=== PATIENT | female | born 1965 | race Caucasian/White ===

== ENCOUNTER 2017-12-21 23:34 | Inpatient (IN) | payer MEDICAID, OTHER ==
[~2017-12-21] VITALS: Ht 166.4 cm; Wt 108.1 kg
[~2017-12-21 23:34] MED LIST: ASCO500 PO; CALC1TAB97 PO; GABA-533 PO; MOME13HF2 IH; QUET200T29 PO; TOPI100T31 PO; TOPI100T37 PO
[2017-12-22 00:27] LABS: GLUCOSE,POINT OF CARE 145 MG/DL (70-110)
[2017-12-22 00:37] LABS: BASOPHILS % (AUTO) 0.7 % (0.0-2.0); EOSINOPHILS % (AUTO) 3.5 % (1.0-6.0); HEMATOCRIT 41.1 % (36-46); HEMOGLOBIN 13.7 g/dL (12.0-16.0); LYMPHOCYTES # (AUTO) 2.3 K/uL (1.0-4.8); LYMPHOCYTES % (AUTO) 27.1 % (22.0-44.0); MEAN CORPUSCULAR HEMOGLOBIN 29.5 pg (26.0-34.0); MEAN CORPUSCULAR HGB CONC 33.4 G/dL (31.0-37.0); MEAN CORPUSCULAR VOLUME 88 fL (80-100); MONOCYTES # (AUTO) 0.7 K/uL (0.1-1.0); MONOCYTES % (AUTO) 8.5 % (2.0-9.0); NEUTROPHILS # (AUTO) 5.2 K/uL (1.8-7.7); NEUTROPHILS % (AUTO) 60.2 % (40.0-70.0); PLATELET COUNT (AUTO) 287 K/uL (150-450); RED BLOOD CELL COUNT(AUTO) 4.66 MIL/uL (4.00-5.20); RED CELL DISTRIBUTION WIDTH 14.3 % (11.5-14.5)
[2017-12-22 00:53] LABS: ANION GAP 13 mmol/L (8-16); CALCIUM, TOTAL 9.1 mg/dL (8.8-10.5); CARBON DIOXIDE 23 mmol/L (22-29); CHLORIDE 103 mmol/L (98-107); GLOMERULAR FILTR. RATE CALC > 60 mL/min (>60); GLUCOSE,RANDOM 153 mg/dL (70-110); POTASSIUM 3.4 mmol/L (3.5-5.1); SODIUM SERUM 139 mmol/L (136-145); UREA NITROGEN, BLOOD 19 mg/dL (7-18)
[2017-12-22 00:58] LABS: ALANINE AMINOTRANSFERASE 40 U/L (12-78); ALBUMIN 3.9 g/dL (3.4-5.0); ALKALINE PHOSPHATASE 101 U/L (46-116); ASPARTATE AMINOTRANSFERASE 16 U/L (15-37); BILIRUBIN,TOTAL 0.2 mg/dL (0.1-1.0); TOTAL PROTEIN, SERUM 7.9 g/dL (6.4-8.2)
[2017-12-22 01:06] LABS: AMPHET/METH SCREEN,URINE NEGATIVE (NEGATIVE); BARBITURATE SCREEN, URINE NEGATIVE (NEGATIVE); BENZODIAZEPINES SCREEN,URINE NEGATIVE (NEGATIVE); CANNABINOID SCREEN,URINE NEGATIVE (NEGATIVE); COCAINE SCREEN,URINE NEGATIVE (NEGATIVE); METHADONE SCREEN, URINE NEGATIVE (NEGATIVE); OPIATE SCREEN,URINE NEGATIVE (NEGATIVE)
[2017-12-22 01:07] LABS: PHENCYCLIDINE SCREEN,URINE NEGATIVE (NEGATIVE)
[2017-12-22 01:15] LABS: APPEARANCE,URINE CLEAR (CLEAR); BILIRUBIN,URINE NEGATIVE (NEGATIVE); GLUCOSE, URINE (UA) NEGATIVE (NEGATIVE); KETONES,URINE NEGATIVE (NEGATIVE); LEUKOCYTE ESTERASE ,URINE NEGATIVE (NEGATIVE); NITRATE,URINE NEGATIVE (NEGATIVE); OCCULT BLOOD,URINE NEGATIVE (NEGATIVE); PROTEIN,URINE NEGATIVE (NEGATIVE); UROBILINOGEN,URINE 0.2 mg/dL (<=1.0)
[2017-12-22] MEDS ORDERED: LORazepam 2 MG TABLET PO PRN (01:15)
[2017-12-22] MEDS ORDERED: ZOLPIDEM TARTRATE 10 MG TABLET PO PRN (01:15)
[2017-12-22 03:20] VITALS: BP 143/96
[2017-12-22] MEDS ORDERED: POTASSIUM CHLORIDE 20 MEQ ER TABLET PO ONE (10:15)
[2017-12-22 10:26] VITALS: BP 120/66
[2017-12-22] MEDS ORDERED: ACETAMINOPHEN 325 MG TABLET PO PRN (16:15)
[2017-12-22] MEDS: ASCORBIC ACID 500 MG TABLET PO SCH (16:56)
[2017-12-22] MEDS: CALCIUM OYSTER SHELL 250 MG-VIT D3 125 UNITS TABLET PO SCH (16:57)
[2017-12-22] MEDS ORDERED: [UNRECOGNIZED DRUG - OTHER] IH SCH (17:00)
[2017-12-22 17:06] VITALS: BP 135/82
[2017-12-23 05:30] VITALS: BP 129/76
[2017-12-23 07:23] LABS: POTASSIUM 3.7 mmol/L (3.5-5.1); THYROID STIMULATING HORMONE 2.76 uIU/mL (0.36-3.74)
[2017-12-23] MEDS: QUEtiapine FUMARATE 100 MG TABLET PO SCH ×3 (08:03→21:00)
[2017-12-23] MEDS: CALCIUM OYSTER SHELL 250 MG-VIT D3 125 UNITS TABLET PO SCH ×2 (08:03→16:48)
[2017-12-23] MEDS: GABAPENTIN 300 MG CAPSULE PO SCH ×2 (08:03→16:48)
[2017-12-23] MEDS: ASCORBIC ACID 500 MG TABLET PO SCH ×2 (08:03→16:48)
[2017-12-23] MEDS: TOPIRAMATE 25 MG TABLET PO SCH ×2 (08:03→16:48)
[2017-12-23] MEDS: OLANZapine 5 MG RAPDIS TABLET PO PRN (08:03)
[2017-12-23 09:39] VITALS: BP 116/65
[2017-12-23 17:05] VITALS: BP 124/85
[2017-12-23] MEDS ORDERED: LORazepam 2 MG/ML VIAL IM ONE (19:20)
[2017-12-23] MEDS ORDERED: LORazepam 2 MG/ML VIAL IM PRN (19:30)
[2017-12-23 19:32] LABS: GLUCOMETER DEV NAME(LOC) 3EC; GLUCOSE,POINT OF CARE 173 MG/DL (70-110)
[2017-12-23 20:02] LABS: BASOPHILS % (AUTO) 0.5 % (0.0-2.0); EOSINOPHILS % (AUTO) 3.2 % (1.0-6.0); HEMATOCRIT 44.8 % (36-46); LYMPHOCYTES # (AUTO) 2.6 K/uL (1.0-4.8); LYMPHOCYTES % (AUTO) 24.8 % (22.0-44.0); MEAN CORPUSCULAR HEMOGLOBIN 29.2 pg (26.0-34.0); MEAN CORPUSCULAR HGB CONC 33.4 G/dL (31.0-37.0); MEAN CORPUSCULAR VOLUME 88 fL (80-100); MONOCYTES # (AUTO) 1.1 K/uL (0.1-1.0); MONOCYTES % (AUTO) 10.5 % (2.0-9.0); NEUTROPHILS # (AUTO) 6.5 K/uL (1.8-7.7); PLATELET COUNT (AUTO) 352 K/uL (150-450); RED BLOOD CELL COUNT(AUTO) 5.12 MIL/uL (4.00-5.20); RED CELL DISTRIBUTION WIDTH 14.2 % (11.5-14.5)
[2017-12-23 20:12] LABS: ANION GAP 11 mmol/L (8-16); CALCIUM, TOTAL 9.9 mg/dL (8.8-10.5); CARBON DIOXIDE 26 mmol/L (22-29); CHLORIDE 102 mmol/L (98-107); CREATININE 0.84 mg/dL (0.60-1.30); GLOMERULAR FILTR. RATE CALC > 60 mL/min (>60); GLUCOSE,RANDOM 158 mg/dL (70-110); POTASSIUM 3.9 mmol/L (3.5-5.1); SODIUM SERUM 139 mmol/L (136-145); UREA NITROGEN, BLOOD 22 mg/dL (7-18)
[2017-12-24 03:05] VITALS: BP 128/68
[2017-12-24 08:00] VITALS: BP 106/77
[2017-12-24] MEDS: ASCORBIC ACID 500 MG TABLET PO SCH ×2 (08:46→16:18)
[2017-12-24] MEDS: TOPIRAMATE 25 MG TABLET PO SCH ×2 (08:46→16:18)
[2017-12-24] MEDS: GABAPENTIN 300 MG CAPSULE PO SCH ×2 (08:46→16:18)
[2017-12-24] MEDS: CALCIUM OYSTER SHELL 250 MG-VIT D3 125 UNITS TABLET PO SCH ×2 (08:46→16:18)
[2017-12-24] MEDS: LevETIRAcetam 500 MG TABLET PO SCH ×2 (08:47→16:18)
[2017-12-24] MEDS: QUEtiapine FUMARATE 100 MG TABLET PO SCH ×3 (08:47→21:15)
[2017-12-24 16:05] VITALS: BP 117/78
[2017-12-25] MEDS: LevETIRAcetam 500 MG TABLET PO SCH ×2 (09:14→16:00)
[2017-12-25] MEDS: ASCORBIC ACID 500 MG TABLET PO SCH ×2 (09:14→16:01)
[2017-12-25] MEDS: QUEtiapine FUMARATE 100 MG TABLET PO SCH ×3 (09:14→20:21)
[2017-12-25] MEDS: GABAPENTIN 300 MG CAPSULE PO SCH ×2 (09:14→16:00)
[2017-12-25] MEDS: TOPIRAMATE 25 MG TABLET PO SCH ×2 (09:14→16:01)
[2017-12-25] MEDS: CALCIUM OYSTER SHELL 250 MG-VIT D3 125 UNITS TABLET PO SCH ×2 (09:16→16:01)
[2017-12-25 09:56] VITALS: BP 118/56
[2017-12-25 16:10] VITALS: BP 132/69
[2017-12-26 09:02] VITALS: BP 141/82
[2017-12-26] MEDS: GABAPENTIN 300 MG CAPSULE PO SCH ×2 (09:48→16:06)
[2017-12-26] MEDS: ASCORBIC ACID 500 MG TABLET PO SCH ×2 (09:48→16:05)
[2017-12-26] MEDS: CALCIUM OYSTER SHELL 250 MG-VIT D3 125 UNITS TABLET PO SCH ×2 (09:48→16:06)
[2017-12-26] MEDS: QUEtiapine FUMARATE 100 MG TABLET PO SCH ×2 (09:48→16:06)
[2017-12-26] MEDS: HydrOXYzine PAMOATE 50 MG CAPSULE PO PRN (09:48)
[2017-12-26] MEDS: TOPIRAMATE 25 MG TABLET PO SCH ×2 (09:48→16:06)
[2017-12-26] MEDS: LevETIRAcetam 500 MG TABLET PO SCH ×2 (09:50→16:06)
[2017-12-26 16:33] VITALS: BP 133/78
[2017-12-26] MEDS ORDERED: QUEtiapine FUMARATE 200 MG TABLET PO SCH (21:00)
[2017-12-27] MEDS: GABAPENTIN 300 MG CAPSULE PO SCH (07:48)
[2017-12-27] MEDS: LevETIRAcetam 500 MG TABLET PO SCH (07:48)
[2017-12-27] MEDS: TOPIRAMATE 25 MG TABLET PO SCH (07:48)
[2017-12-27] MEDS: ASCORBIC ACID 500 MG TABLET PO SCH (07:48)
[2017-12-27] MEDS: CALCIUM OYSTER SHELL 250 MG-VIT D3 125 UNITS TABLET PO SCH (07:48)
[2017-12-27] MEDS: HydrOXYzine PAMOATE 50 MG CAPSULE PO PRN (07:50)
[2017-12-27] MEDS: OLANZapine 5 MG RAPDIS TABLET PO PRN (07:50)
[2017-12-27 08:40] VITALS: BP 134/84
[2017-12-27] MEDS ORDERED: QUEtiapine FUMARATE 100 MG TABLET PO SCH (09:00)
[2017-12-27] MEDS ORDERED: GABA-531 PO (11:19)
[2017-12-27] MEDS ORDERED: TOPI25 PO (11:19)
[2017-12-27] MEDS ORDERED: LEVE500T53 PO (11:19)
[2017-12-27] MEDS ORDERED: QUET100T PO ×2 (11:19)
[2017-12-27] MEDS ORDERED: OSCD250 PO (11:21)
== END 2017-12-27 14:00 | disposition home or self-care (01) | DRG 750 ==
LOC: EMS 23:35 → 3EC 12-22 01:30
PROVIDERS: ADMIT Psychiatry & Neurology Psychiatry; ATTEND Psychiatry & Neurology Psychiatry
DX: F25.0 Schizoaffective disorder, bipolar type (principal); F72 Severe intellectual disabilities; R45.851 Suicidal ideations; E11.9 Type 2 diabetes mellitus without complications; I10 Essential (primary) hypertension; E55.9 Vitamin D deficiency, unspecified; D64.9 Anemia, unspecified; G40.909 Epilepsy, unspecified, not intractable, without status epilepticus; E78.5 Hyperlipidemia, unspecified; K21.9 Gastro-esophageal reflux disease without esophagitis; J44.9 Chronic obstructive pulmonary disease, unspecified; E87.6 Hypokalemia; Z56.0 Unemployment, unspecified; E66.9 Obesity, unspecified; Z91.14 Patient's other noncompliance with medication regimen; Z79.899 Other long term (current) drug therapy; Z88.0 Allergy status to penicillin; Z88.8 Allergy status to other drugs, medicaments and biological substances; Z88.6 Allergy status to analgesic agent; Z91.040 Latex allergy status; Z68.39 Body mass index [BMI] 39.0-39.9, adult
CPT/HCPCS: 82962; 84132; 84443; 87081; 99285; G0480; J2060

== ENCOUNTER 2018-01-26 17:12 | Emergency (ER) | payer MEDICAID, OTHER ==
[~2018-01-26] VITALS: Ht 157.5 cm; Wt 140.0 kg
[~2018-01-26 17:12] MED LIST changes: -CALC1TAB97 PO; +DIVA500T35 PO; +GABA-531 PO; -GABA-533 PO; +LEVE500T53 PO; -MOME13HF2 IH; +OSCD250 PO; +QUET100T PO; -QUET200T29 PO; -TOPI100T31 PO; -TOPI100T37 PO; +TOPI25 PO; +ZIPR40CA2 PO
[2018-01-26 17:32] VITALS: BP 130/57
[2018-01-26 17:37] LABS: GLUCOSE,POINT OF CARE 145 MG/DL (70-110)
[2018-01-26] MEDS ORDERED: LORA1TAB3 PO (17:41)
[2018-01-26] MEDS ORDERED: LIB25 PO (17:41)
== END 2018-01-26 20:21 | disposition home or self-care (01) ==
LOC: EMS 17:13
DX: S32.010A Wedge compression fracture of first lumbar vertebra, initial encounter for closed fracture (principal); S22.010A Wedge compression fracture of first thoracic vertebra, initial encounter for closed fracture; E11.9 Type 2 diabetes mellitus without complications; F17.200 Nicotine dependence, unspecified, uncomplicated; Z88.5 Allergy status to narcotic agent; Z88.0 Allergy status to penicillin; Z88.8 Allergy status to other drugs, medicaments and biological substances; Z88.1 Allergy status to other antibiotic agents; Z91.040 Latex allergy status; W19.XXXA Unspecified fall, initial encounter; Y93.89 Activity, other specified; Y92.89 Other specified places as the place of occurrence of the external cause; Y99.8 Other external cause status
CPT/HCPCS: 70450; 72100; 99284

== ENCOUNTER 2018-02-05 16:02 | Inpatient (IN) | payer MEDICAID, OTHER ==
[~2018-02-05] VITALS: Ht 160 cm; Wt 113.6 kg
[~2018-02-05 16:02] MED LIST changes: -ASCO500 PO; -DIVA500T35 PO; +LIB25 PO; +LORA1TAB3 PO
[2018-02-05 16:52] LABS: EOSINOPHILS % (AUTO) 4.9 % (1.0-6.0); HEMATOCRIT 41.4 % (36-46); HEMOGLOBIN 13.9 g/dL (12.0-16.0); LYMPHOCYTES # (AUTO) 2.1 K/uL (1.0-4.8); LYMPHOCYTES % (AUTO) 20.4 % (22.0-44.0); MEAN CORPUSCULAR HEMOGLOBIN 29.4 pg (26.0-34.0); MEAN CORPUSCULAR HGB CONC 33.6 G/dL (31.0-37.0); MEAN CORPUSCULAR VOLUME 88 fL (80-100); MONOCYTES # (AUTO) 0.7 K/uL (0.1-1.0); MONOCYTES % (AUTO) 6.5 % (2.0-9.0); NEUTROPHILS % (AUTO) 67.2 % (40.0-70.0); PLATELET COUNT (AUTO) 319 K/uL (150-450); RED BLOOD CELL COUNT(AUTO) 4.74 MIL/uL (4.00-5.20); RED CELL DISTRIBUTION WIDTH 13.9 % (11.5-14.5)
[2018-02-05 17:08] LABS: ANION GAP 9 mmol/L (8-16); CALCIUM, TOTAL 8.9 mg/dL (8.8-10.5); CARBON DIOXIDE 26 mmol/L (22-29); CHLORIDE 103 mmol/L (98-107); CREATININE 0.99 mg/dL (0.60-1.30); GLOMERULAR FILTR. RATE CALC 58 mL/min (>60); GLUCOSE,RANDOM 179 mg/dL (70-110); POTASSIUM 3.7 mmol/L (3.5-5.1); SODIUM SERUM 138 mmol/L (136-145); UREA NITROGEN, BLOOD 24 mg/dL (7-18)
[2018-02-05 17:14] LABS: ALANINE AMINOTRANSFERASE 50 U/L (12-78); ALBUMIN 3.6 g/dL (3.4-5.0); ALKALINE PHOSPHATASE 108 U/L (46-116); ASPARTATE AMINOTRANSFERASE 22 U/L (15-37); BILIRUBIN,TOTAL 0.1 mg/dL (0.1-1.0); TOTAL PROTEIN, SERUM 7.6 g/dL (6.4-8.2)
[2018-02-05 18:43] LABS: AMPHET/METH SCREEN,URINE NEGATIVE (NEGATIVE); BARBITURATE SCREEN, URINE NEGATIVE (NEGATIVE); BENZODIAZEPINES SCREEN,URINE NEGATIVE (NEGATIVE); CANNABINOID SCREEN,URINE NEGATIVE (NEGATIVE); COCAINE SCREEN,URINE NEGATIVE (NEGATIVE); METHADONE SCREEN, URINE NEGATIVE (NEGATIVE); OPIATE SCREEN,URINE NEGATIVE (NEGATIVE); PHENCYCLIDINE SCREEN,URINE NEGATIVE (NEGATIVE)
[2018-02-05] MEDS ORDERED: DiphenhydrAMINE HCL 50 MG/ML VIAL IM ONE (19:45)
[2018-02-05] MEDS ORDERED: LORazepam 2 MG/ML VIAL IM ONE (19:45)
[2018-02-05] MEDS ORDERED: HALOPERIDOL LACTATE 5 MG/ML VIAL IM ONE (19:45)
[2018-02-05] MEDS ORDERED: QUEtiapine FUMARATE 100 MG TABLET PO PRN (20:00)
[2018-02-06] MEDS ORDERED: PNEUMOCOCCAL VACCINE POLYVALENT 0.5 ML VIAL [PPSV23] IM ONE (01:45)
[2018-02-06] MEDS ORDERED: DEXTROSE 50%-WATER 25 GM/50 ML SYRINGE IVP PRN (06:15)
[2018-02-06 07:12] LABS: GLUCOMETER DEV NAME(LOC) 3EX 1; GLUCOSE,POINT OF CARE 132 MG/DL (70-110)
[2018-02-06] MEDS: TOPIRAMATE 25 MG TABLET PO SCH ×2 (09:17→16:49)
[2018-02-06] MEDS: LevETIRAcetam 500 MG TABLET PO SCH ×2 (09:17→16:50)
[2018-02-06 11:38] LABS: GLUCOMETER DEV NAME(LOC) 3EX 1; GLUCOSE,POINT OF CARE 110 MG/DL (70-110)
[2018-02-06 16:53] LABS: GLUCOMETER DEV NAME(LOC) 3EX 1; GLUCOSE,POINT OF CARE 150 MG/DL (70-110)
[2018-02-06] MEDS: INSULIN LISPRO 100 UNITS/ML SQ PRN (17:30)
[2018-02-06] MEDS ORDERED: LORazepam 2 MG/ML VIAL IM ONE (18:05)
[2018-02-06 18:08] LABS: GLUCOMETER DEV NAME(LOC) 3EX 1; GLUCOSE,POINT OF CARE 178 MG/DL (70-110)
[2018-02-06 18:48] LABS: BASOPHILS % (AUTO) 1.4 % (0.0-2.0); EOSINOPHILS % (AUTO) 4.8 % (1.0-6.0); HEMOGLOBIN 14.6 g/dL (12.0-16.0); LYMPHOCYTES # (AUTO) 2.5 K/uL (1.0-4.8); LYMPHOCYTES % (AUTO) 26.4 % (22.0-44.0); MEAN CORPUSCULAR HEMOGLOBIN 29.4 pg (26.0-34.0); MEAN CORPUSCULAR HGB CONC 33.9 G/dL (31.0-37.0); MEAN CORPUSCULAR VOLUME 87 fL (80-100); MONOCYTES # (AUTO) 0.6 K/uL (0.1-1.0); MONOCYTES % (AUTO) 6.5 % (2.0-9.0); NEUTROPHILS # (AUTO) 5.7 K/uL (1.8-7.7); NEUTROPHILS % (AUTO) 60.9 % (40.0-70.0); PLATELET COUNT (AUTO) 353 K/uL (150-450); RED BLOOD CELL COUNT(AUTO) 4.95 MIL/uL (4.00-5.20); RED CELL DISTRIBUTION WIDTH 14.1 % (11.5-14.5)
[2018-02-06 18:56] VITALS: BP 106/68
[2018-02-06 18:58] LABS: ANION GAP 8 mmol/L (8-16); CALCIUM, TOTAL 8.5 mg/dL (8.8-10.5); CARBON DIOXIDE 26 mmol/L (22-29); CHLORIDE 104 mmol/L (98-107); GLOMERULAR FILTR. RATE CALC > 60 mL/min (>60); GLUCOSE,RANDOM 184 mg/dL (70-110); POTASSIUM 3.6 mmol/L (3.5-5.1); SODIUM SERUM 138 mmol/L (136-145); UREA NITROGEN, BLOOD 16 mg/dL (7-18)
[2018-02-06 19:04] LABS: ALANINE AMINOTRANSFERASE 52 U/L (12-78); ALBUMIN 3.7 g/dL (3.4-5.0); ALKALINE PHOSPHATASE 111 U/L (46-116); ASPARTATE AMINOTRANSFERASE 25 U/L (15-37); BILIRUBIN,TOTAL 0.3 mg/dL (0.1-1.0); TOTAL PROTEIN, SERUM 7.8 g/dL (6.4-8.2)
[2018-02-06 19:06] LABS: LACTIC ACID 1.5 mmol/L (0.4-2.0)
[2018-02-06 22:03] LABS: GLUCOMETER DEV NAME(LOC) 3EX 1; GLUCOSE,POINT OF CARE 114 MG/DL (70-110)
[2018-02-06] MEDS: ZOLPIDEM TARTRATE 10 MG TABLET PO PRN (22:51)
[2018-02-07 01:52] VITALS: BP 101/75
[2018-02-07] MEDS: LORazepam 2 MG TABLET PO PRN ×2 (02:04→23:13)
[2018-02-07 05:43] LABS: GLUCOMETER DEV NAME(LOC) 3EX 1; GLUCOSE,POINT OF CARE 137 MG/DL (70-110)
[2018-02-07] MEDS: TOPIRAMATE 25 MG TABLET PO SCH ×2 (09:50→17:40)
[2018-02-07] MEDS: LevETIRAcetam 500 MG TABLET PO SCH ×2 (09:50→17:41)
[2018-02-07 10:14] VITALS: BP 110/75
[2018-02-07 12:03] LABS: GLUCOMETER DEV NAME(LOC) 3EX 1; GLUCOSE,POINT OF CARE 113 MG/DL (70-110)
[2018-02-07] MEDS ORDERED: LORazepam 2 MG/ML VIAL IM ONE (12:30)
[2018-02-07] MEDS ORDERED: DiphenhydrAMINE HCL 50 MG/ML VIAL IM ONE (12:30)
[2018-02-07] MEDS ORDERED: HALOPERIDOL LACTATE 5 MG/ML VIAL IM ONE (12:30)
[2018-02-07 16:17] VITALS: BP 121/78
[2018-02-07 17:33] LABS: GLUCOMETER DEV NAME(LOC) 3EX 1; GLUCOSE,POINT OF CARE 123 MG/DL (70-110)
[2018-02-07 21:43] LABS: GLUCOMETER DEV NAME(LOC) 3EX 1; GLUCOSE,POINT OF CARE 135 MG/DL (70-110)
[2018-02-07] MEDS: ZOLPIDEM TARTRATE 10 MG TABLET PO PRN (23:13)
[2018-02-08 06:28] LABS: GLUCOMETER DEV NAME(LOC) 3EX 1; GLUCOSE,POINT OF CARE 128 MG/DL (70-110)
[2018-02-08] MEDS: INSULIN LISPRO 100 UNITS/ML SQ PRN (07:00)
[2018-02-08 08:55] VITALS: BP 150/72
[2018-02-08] MEDS: TOPIRAMATE 25 MG TABLET PO SCH (09:59)
[2018-02-08] MEDS: LevETIRAcetam 500 MG TABLET PO SCH (09:59)
[2018-02-08 11:27] LABS: GLUCOMETER DEV NAME(LOC) 3EX 1; GLUCOSE,POINT OF CARE 106 MG/DL (70-110)
== END 2018-02-08 14:36 | disposition home or self-care (01) | DRG 750 ==
LOC: EMS 16:05 → 3EI 02-06 00:17
PROVIDERS: ADMIT Psychiatry & Neurology Psychiatry; ATTEND Psychiatry & Neurology Psychiatry
DX: F25.0 Schizoaffective disorder, bipolar type (principal); E11.65 Type 2 diabetes mellitus with hyperglycemia; R45.851 Suicidal ideations; E55.9 Vitamin D deficiency, unspecified; E78.5 Hyperlipidemia, unspecified; G40.909 Epilepsy, unspecified, not intractable, without status epilepticus; J44.9 Chronic obstructive pulmonary disease, unspecified; K21.9 Gastro-esophageal reflux disease without esophagitis; Z88.0 Allergy status to penicillin; Z88.5 Allergy status to narcotic agent; Z91.041 Radiographic dye allergy status; Z91.040 Latex allergy status; Z88.8 Allergy status to other drugs, medicaments and biological substances; Z91.011 Allergy to milk products; Z79.899 Other long term (current) drug therapy
CPT/HCPCS: 83605; 87081; 96372; 99285; G0480; J1200; J1630; J2060

== ENCOUNTER 2021-05-23 17:19 | Inpatient (IN) | payer MEDICAID, OTHER ==
[~2021-05-23] VITALS: Ht 165.1 cm; Wt 95.5 kg
[~2021-05-23 17:19] MED LIST changes: -GABA-531 PO; -LIB25 PO; -LORA1TAB3 PO; -OSCD250 PO; -QUET100T PO; -ZIPR40CA2 PO
[2021-05-23 19:46] LABS: BASOPHILS % (AUTO) 1.2 % (0.0-2.0); EOSINOPHILS % (AUTO) 5.2 % (1.0-6.0); HEMATOCRIT 41.5 % (36-46); HEMOGLOBIN 13.3 g/dL (12.0-16.0); LYMPHOCYTES # (AUTO) 2.7 K/uL (1.0-4.8); MEAN CORPUSCULAR HEMOGLOBIN 28.8 pg (26.0-34.0); MEAN CORPUSCULAR HGB CONC 32.1 G/dL (31.0-37.0); MEAN CORPUSCULAR VOLUME 90 fL (80-100); MONOCYTES # (AUTO) 0.8 K/uL (0.1-1.0); MONOCYTES % (AUTO) 7.5 % (2.0-9.0); NEUTROPHILS # (AUTO) 5.9 K/uL (1.8-7.7); NEUTROPHILS % (AUTO) 59.1 % (40.0-70.0); PLATELET COUNT (AUTO) 342 K/uL (150-450); RED BLOOD CELL COUNT(AUTO) 4.64 MIL/uL (4.00-5.20); RED CELL DISTRIBUTION WIDTH 13.8 % (11.5-14.5)
[2021-05-23 19:56] LABS: ANION GAP 11 mmol/L (8-16); CALCIUM, TOTAL 9.2 mg/dL (8.8-10.5); CARBON DIOXIDE 22 mmol/L (22-29); CHLORIDE 104 mmol/L (98-107); CREATININE 0.94 mg/dL (0.60-1.30); GLOMERULAR FILTR. RATE CALC > 60 mL/min (>60); GLUCOSE,RANDOM 113 mg/dL (70-110); POTASSIUM 3.7 mmol/L (3.5-5.1); SODIUM SERUM 137 mmol/L (136-145); UREA NITROGEN, BLOOD 15 mg/dL (7-18)
[2021-05-23 20:01] LABS: ALANINE AMINOTRANSFERASE 39 U/L (12-78); ALBUMIN 3.9 g/dL (3.4-5.0); ALKALINE PHOSPHATASE 74 U/L (46-116); ASPARTATE AMINOTRANSFERASE 20 U/L (15-37); BILIRUBIN,TOTAL 0.2 mg/dL (0.1-1.0); TOTAL PROTEIN, SERUM 7.8 g/dL (6.4-8.2)
[2021-05-23 20:24] LABS: GLUCOSE,POINT OF CARE 129 MG/DL (70-110)
[2021-05-23] MEDS ORDERED: ACETAMINOPHEN 500 MG TABLET PO ONE (20:45)
[2021-05-23] MEDS ORDERED: LORazepam 1 MG TABLET PO ONE (21:30)
[2021-05-23] MEDS ORDERED: OLANZapine 5 MG RAPDIS TABLET PO PRN (21:30)
[2021-05-23] MEDS ORDERED: OLANZapine 5 MG RAPDIS TABLET PO ONE (21:30)
[2021-05-23] MEDS ORDERED: ZOLPIDEM TARTRATE 10 MG TABLET PO PRN (21:30)
[2021-05-23] MEDS ORDERED: LORazepam 2 MG TABLET PO PRN (21:30)
[2021-05-23 21:38] LABS: AMPHET/METH SCREEN,URINE NEGATIVE (NEGATIVE); BARBITURATE SCREEN, URINE NEGATIVE (NEGATIVE); BENZODIAZEPINES SCREEN,URINE NEGATIVE (NEGATIVE); CANNABINOID SCREEN,URINE NEGATIVE (NEGATIVE); COCAINE SCREEN,URINE NEGATIVE (NEGATIVE); METHADONE SCREEN, URINE NEGATIVE (NEGATIVE); OPIATE SCREEN,URINE NEGATIVE (NEGATIVE); PHENCYCLIDINE SCREEN,URINE NEGATIVE (NEGATIVE)
[2021-05-23 22:15] LABS: COVID AG,FIA SOURCE NASOPHARYNGEAL
[2021-05-24 00:25] VITALS: BP 108/69
[2021-05-24 06:05] LABS: CHOL/HDL RATIO 3.4 (3.9-5.7)
[2021-05-24] MEDS ORDERED: DOCUSATE SODIUM 100 MG CAPSULE PO PRN (07:45)
[2021-05-24] MEDS ORDERED: BACITRACIN 28 GM OINTMENT TP PRN (07:45)
[2021-05-24] MEDS ORDERED: OMEPRAZOLE 20 MG CAPSULE PO PRN (07:45)
[2021-05-24] MEDS ORDERED: CloNIDine HCL 0.1 MG TABLET PO PRN (07:45)
[2021-05-24] MEDS ORDERED: BENZOCAINE/MENTHOL LOZENGE PO PRN (07:45)
[2021-05-24] MEDS ORDERED: MAG HYDROX/AL HYDROX/SIMETH ES 30 ML SUSPENSION UDCUP PO PRN ×2 (07:45→15:00)
[2021-05-24] MEDS ORDERED: MAGNESIUM HYDROXIDE SUSPENSION 30 ML UDCUP PO PRN ×2 (07:45→15:00)
[2021-05-24] MEDS ORDERED: ACETAMINOPHEN 325 MG TABLET PO PRN (07:45)
[2021-05-24] MEDS ORDERED: PETROLATUM,WHITE 28 GM JELLY TP PRN (07:45)
[2021-05-24] MEDS ORDERED: ALBUTEROL SULFATE HFA 90 MCG/PUFF 8 GM INHALER IH PRN (07:45)
[2021-05-24 08:15] VITALS: BP 128/76
[2021-05-24] MEDS: LevETIRAcetam 500 MG TABLET PO SCH ×2 (10:48→17:37)
[2021-05-24] MEDS: TOPIRAMATE 25 MG TABLET PO SCH ×2 (10:48→17:36)
[2021-05-24] MEDS ORDERED: PROMETHAZINE HCL 25 MG TABLET PO PRN (15:00)
[2021-05-24] MEDS ORDERED: GuaiFENesin/D-METHORPHAN [SUGAR-FREE] 200-20MG/10 ML SYRUP UDCUP PO PRN (15:00)
[2021-05-24] MEDS ORDERED: HydrOXYzine PAMOATE 50 MG CAPSULE PO PRN (15:00)
[2021-05-24] MEDS ORDERED: LOPERAMIDE HCL 2 MG CAPSULE PO PRN (15:00)
[2021-05-24] MEDS ORDERED: TUBERCULIN, PURIFIED PROTEIN DERIVATIVE 5 TU/0.1 ML SYRINGE ID ONE (15:00)
[2021-05-24] MEDS ORDERED: DIAZEPAM 10 MG TABLET PO PRN (15:45)
[2021-05-24 16:23] VITALS: BP 135/70
[2021-05-24] MEDS: THIAMINE 100 MG TABLET PO SCH (17:37)
[2021-05-24] MEDS ORDERED: OLANZapine 5 MG RAPDIS TABLET PO SCH (21:00)
[2021-05-24] MEDS: DIVALPROEX SODIUM 500 MG ER TABLET PO SCH (21:06)
[2021-05-24] MEDS: MELATONIN 5 MG TABLET PO SCH (21:06)
[2021-05-25 02:35] VITALS: BP 101/60
[2021-05-25] MEDS: ACETAMINOPHEN 325 MG TABLET PO PRN (02:49)
[2021-05-25 07:20] LABS: CHOL/HDL RATIO 3.8 (3.9-5.7)
[2021-05-25 07:25] LABS: HEMOGLOBIN A1C 6.2 % (3.8-5.6)
[2021-05-25 08:01] LABS: FREE T4 (FREE THYROXINE) 1.06 ng/dL (0.76-1.46); THYROID STIMULATING HORMONE 1.25 uIU/mL (0.36-3.74)
[2021-05-25 08:32] VITALS: BP 115/75
[2021-05-25] MEDS ORDERED: DULoxetine HCL 20 MG CAPSULE PO SCH (09:00)
[2021-05-25] MEDS: NALTREXONE HCL 50 MG TABLET PO SCH (09:11)
[2021-05-25] MEDS: OMEGA-3/DHA/EPA/FISH OIL 1,000 MG CAPSULE PO SCH (09:12)
[2021-05-25] MEDS: MULTIVITAMINS WITH MINERALS, THERAPEUTIC TABLET PO SCH (09:12)
[2021-05-25] MEDS: LevETIRAcetam 500 MG TABLET PO SCH ×2 (09:12→16:16)
[2021-05-25] MEDS: THIAMINE 100 MG TABLET PO SCH ×2 (09:12→16:16)
[2021-05-25] MEDS: FOLIC ACID 1 MG TABLET PO SCH (09:13)
[2021-05-25] MEDS: TOPIRAMATE 25 MG TABLET PO SCH ×2 (09:13→16:16)
[2021-05-25 16:12] VITALS: BP 148/90
[2021-05-25] MEDS: DIVALPROEX SODIUM 500 MG ER TABLET PO SCH (20:03)
[2021-05-25] MEDS: MELATONIN 5 MG TABLET PO SCH (20:03)
[2021-05-25] MEDS: OLANZapine 10 MG RAPDIS TABLET PO SCH (20:03)
[2021-05-25] MEDS ORDERED: DEXTROSE 50%-WATER 25 GM/50 ML SYRINGE IVP PRN (20:30)
[2021-05-25 20:41] VITALS: BP 126/72
[2021-05-25 20:57] LABS: GLUCOMETER DEV NAME(LOC) 3EX.; GLUCOSE,POINT OF CARE 130 MG/DL (70-110)
[2021-05-26 06:31] LABS: GLUCOMETER DEV NAME(LOC) 3EX.; GLUCOSE,POINT OF CARE 126 MG/DL (70-110)
[2021-05-26] MEDS: OMEGA-3/DHA/EPA/FISH OIL 1,000 MG CAPSULE PO SCH (08:19)
[2021-05-26] MEDS: TOPIRAMATE 25 MG TABLET PO SCH ×2 (08:19→16:28)
[2021-05-26] MEDS: THIAMINE 100 MG TABLET PO SCH ×2 (08:19→16:28)
[2021-05-26] MEDS: FOLIC ACID 1 MG TABLET PO SCH (08:19)
[2021-05-26] MEDS: DULoxetine HCL 30 MG CAPSULE PO SCH (08:19)
[2021-05-26] MEDS: MULTIVITAMINS WITH MINERALS, THERAPEUTIC TABLET PO SCH (08:19)
[2021-05-26] MEDS: NALTREXONE HCL 50 MG TABLET PO SCH (08:19)
[2021-05-26] MEDS: LevETIRAcetam 500 MG TABLET PO SCH ×2 (08:19→16:28)
[2021-05-26 09:24] VITALS: BP 112/59
[2021-05-26] MEDS: ACETAMINOPHEN 325 MG TABLET PO PRN (09:24)
[2021-05-26 09:32] VITALS: BP 112/59
[2021-05-26 11:18] LABS: GLUCOMETER DEV NAME(LOC) 3EX.; GLUCOSE,POINT OF CARE 125 MG/DL (70-110)
[2021-05-26 16:00] VITALS: BP 151/86
[2021-05-26] MEDS: INSULIN LISPRO 100 UNITS/ML SQ PRN (17:00)
[2021-05-26 17:09] LABS: GLUCOMETER DEV NAME(LOC) 3EX.; GLUCOSE,POINT OF CARE 144 MG/DL (70-110)
[2021-05-26] MEDS: DIVALPROEX SODIUM 500 MG ER TABLET PO SCH (20:12)
[2021-05-26] MEDS: MELATONIN 5 MG TABLET PO SCH (20:19)
[2021-05-26] MEDS: OLANZapine 10 MG RAPDIS TABLET PO SCH (20:19)
[2021-05-27 05:22] LABS: GLUCOMETER DEV NAME(LOC) 3EX.; GLUCOSE,POINT OF CARE 118 MG/DL (70-110)
[2021-05-27] MEDS: INSULIN LISPRO 100 UNITS/ML SQ PRN ×2 (07:01→17:44)
[2021-05-27 08:24] VITALS: BP 146/90
[2021-05-27] MEDS: MULTIVITAMINS WITH MINERALS, THERAPEUTIC TABLET PO SCH (08:44)
[2021-05-27] MEDS: TOPIRAMATE 25 MG TABLET PO SCH ×2 (08:45→17:37)
[2021-05-27] MEDS: NALTREXONE HCL 50 MG TABLET PO SCH (08:45)
[2021-05-27] MEDS: LevETIRAcetam 500 MG TABLET PO SCH ×2 (08:45→17:37)
[2021-05-27] MEDS: DULoxetine HCL 30 MG CAPSULE PO SCH (08:45)
[2021-05-27] MEDS: OMEGA-3/DHA/EPA/FISH OIL 1,000 MG CAPSULE PO SCH (08:45)
[2021-05-27] MEDS: THIAMINE 100 MG TABLET PO SCH ×2 (08:46→17:37)
[2021-05-27] MEDS: FOLIC ACID 1 MG TABLET PO SCH (08:46)
[2021-05-27 12:39] LABS: GLUCOMETER DEV NAME(LOC) 3EX.; GLUCOSE,POINT OF CARE 134 MG/DL (70-110)
[2021-05-27 16:14] VITALS: BP 117/82
[2021-05-27 16:34] LABS: GLUCOMETER DEV NAME(LOC) 3EX.; GLUCOSE,POINT OF CARE 189 MG/DL (70-110)
[2021-05-27] MEDS: OLANZapine 10 MG RAPDIS TABLET PO SCH (20:52)
[2021-05-27] MEDS: DIVALPROEX SODIUM 500 MG ER TABLET PO SCH (20:52)
[2021-05-27] MEDS: MELATONIN 5 MG TABLET PO SCH (20:52)
[2021-05-27 21:37] LABS: GLUCOMETER DEV NAME(LOC) 3EX.; GLUCOSE,POINT OF CARE 93 MG/DL (70-110)
[2021-05-28 06:09] LABS: GLUCOMETER DEV NAME(LOC) 3EX.; GLUCOSE,POINT OF CARE 122 MG/DL (70-110)
[2021-05-28] MEDS: OMEGA-3/DHA/EPA/FISH OIL 1,000 MG CAPSULE PO SCH (08:14)
[2021-05-28] MEDS: THIAMINE 100 MG TABLET PO SCH ×2 (08:14→17:10)
[2021-05-28] MEDS: TOPIRAMATE 25 MG TABLET PO SCH ×2 (08:14→17:10)
[2021-05-28] MEDS: NALTREXONE HCL 50 MG TABLET PO SCH (08:14)
[2021-05-28] MEDS: LevETIRAcetam 500 MG TABLET PO SCH ×2 (08:14→17:10)
[2021-05-28] MEDS: MULTIVITAMINS WITH MINERALS, THERAPEUTIC TABLET PO SCH (08:14)
[2021-05-28] MEDS: FOLIC ACID 1 MG TABLET PO SCH (08:14)
[2021-05-28] MEDS: DULoxetine HCL 30 MG CAPSULE PO SCH (08:14)
[2021-05-28 09:27] VITALS: BP 121/86
[2021-05-28 11:38] LABS: GLUCOMETER DEV NAME(LOC) 3EX.; GLUCOSE,POINT OF CARE 135 MG/DL (70-110)
[2021-05-28 16:03] VITALS: BP 137/73
[2021-05-28 17:01] LABS: GLUCOMETER DEV NAME(LOC) 3EX.; GLUCOSE,POINT OF CARE 103 MG/DL (70-110)
[2021-05-28] MEDS: OLANZapine 10 MG RAPDIS TABLET PO SCH (21:24)
[2021-05-28] MEDS: DIVALPROEX SODIUM 500 MG ER TABLET PO SCH (21:24)
[2021-05-28] MEDS: MELATONIN 5 MG TABLET PO SCH (21:24)
[2021-05-28 21:53] LABS: GLUCOMETER DEV NAME(LOC) 3EX.; GLUCOSE,POINT OF CARE 96 MG/DL (70-110)
[2021-05-29 05:26] LABS: GLUCOMETER DEV NAME(LOC) 3EX.; GLUCOSE,POINT OF CARE 104 MG/DL (70-110)
[2021-05-29] MEDS: OMEGA-3/DHA/EPA/FISH OIL 1,000 MG CAPSULE PO SCH (08:18)
[2021-05-29] MEDS: LevETIRAcetam 500 MG TABLET PO SCH (08:18)
[2021-05-29] MEDS: NALTREXONE HCL 50 MG TABLET PO SCH (08:18)
[2021-05-29] MEDS: MULTIVITAMINS WITH MINERALS, THERAPEUTIC TABLET PO SCH (08:18)
[2021-05-29] MEDS: FOLIC ACID 1 MG TABLET PO SCH (08:18)
[2021-05-29] MEDS: THIAMINE 100 MG TABLET PO SCH (08:18)
[2021-05-29] MEDS: TOPIRAMATE 25 MG TABLET PO SCH (08:19)
[2021-05-29] MEDS: DULoxetine HCL 30 MG CAPSULE PO SCH (08:19)
[2021-05-29 09:33] VITALS: BP 143/88
[2021-05-29] MEDS ORDERED: OMEG-135 PO (11:11)
[2021-05-29] MEDS ORDERED: OLAN10TA26 PO (11:11)
[2021-05-29] MEDS ORDERED: LEVE500T53 PO (11:11)
[2021-05-29] MEDS ORDERED: DIVA-80 PO (11:11)
[2021-05-29] MEDS ORDERED: MELA5TAB40 PO (11:11)
[2021-05-29] MEDS ORDERED: TOPI25 PO (11:11)
[2021-05-29] MEDS ORDERED: DULO30CA2 PO (11:11)
[2021-05-29] MEDS ORDERED: NALT50TA PO (11:11)
[2021-05-29 11:12] LABS: GLUCOMETER DEV NAME(LOC) 3EX.; GLUCOSE,POINT OF CARE 113 MG/DL (70-110)
[2021-05-29 16:25] LABS: GLUCOMETER DEV NAME(LOC) 3EX.; GLUCOSE,POINT OF CARE 103 MG/DL (70-110)
== END 2021-05-29 17:34 | disposition home or self-care (01) | DRG 750 ==
LOC: EMS 17:21 → 3EI 22:00
PROVIDERS: ADMIT Psychiatry & Neurology Psychiatry; ATTEND Psychiatry & Neurology Psychiatry
DX: F25.0 Schizoaffective disorder, bipolar type (principal); E11.42 Type 2 diabetes mellitus with diabetic polyneuropathy; R45.851 Suicidal ideations; E11.9 Type 2 diabetes mellitus without complications; F70 Mild intellectual disabilities; E78.00 Pure hypercholesterolemia, unspecified; F15.90 Other stimulant use, unspecified, uncomplicated; I10 Essential (primary) hypertension; J44.9 Chronic obstructive pulmonary disease, unspecified; E66.9 Obesity, unspecified; G89.29 Other chronic pain; Z20.822 Contact with and (suspected) exposure to COVID-19; K21.9 Gastro-esophageal reflux disease without esophagitis; G40.909 Epilepsy, unspecified, not intractable, without status epilepticus; F41.9 Anxiety disorder, unspecified; K59.00 Constipation, unspecified; G47.00 Insomnia, unspecified; Z55.9 Problems related to education and literacy, unspecified; Z59.9 Problem related to housing and economic circumstances, unspecified; Z65.3 Problems related to other legal circumstances; Z87.891 Personal history of nicotine dependence; Z88.0 Allergy status to penicillin; Z88.6 Allergy status to analgesic agent; Z90.710 Acquired absence of both cervix and uterus; Z91.14 Patient's other noncompliance with medication regimen; Z91.19 Patient's noncompliance with other medical treatment and regimen; Z68.35 Body mass index [BMI] 35.0-35.9, adult; Z88.5 Allergy status to narcotic agent; Z88.8 Allergy status to other drugs, medicaments and biological substances; Z88.1 Allergy status to other antibiotic agents; Z91.041 Radiographic dye allergy status
CPT/HCPCS: 80053; 80061; 82962; 83036; 84439; 84443; 85025; 86592; 99285; G0480; Q9967

== ENCOUNTER 2024-05-26 07:58 | Day surgery (SDC) | payer OTHER ==
[~2024-05-26] VITALS: Ht 167.6 cm; Wt 57.7 kg
[~2024-05-26 07:58] MED LIST changes: +DIVA-153 PO; +DULO30CA2 PO; +LEVE-71 PO; -LEVE500T53 PO; +MELA5TAB40 PO; +NALT50TA6 PO; +OLAN10TA26 PO; +OMEG-135 PO; +SODIUM CHLORIDE 0.9% 1,000 ML ONE
[2024-05-26] MEDS: SODIUM CHLORIDE 0.9% 1,000 ML IV ONE (09:10)
[2024-05-26] MEDS ORDERED: FLUT16SP NASAL (09:51)
[2024-05-26] MEDS ORDERED: FAMO20 PO (09:51)
[2024-05-26] MEDS ORDERED: PRAV40TA4 PO (09:51)
[2024-05-26] MEDS ORDERED: MOME13HF12 IH (09:51)
[2024-05-26] MEDS ORDERED: OLAN20TA20 PO (09:51)
[2024-05-26] MEDS ORDERED: LEVE-71 PO (09:51)
[2024-05-26] MEDS ORDERED: MONT-35 PO (09:51)
[2024-05-26] MEDS ORDERED: OMEG100033 PO (09:51)
[2024-05-26] MEDS ORDERED: MIDO5TAB29 PO (09:51)
[2024-05-26] MEDS ORDERED: ALPR-705 PO (09:51)
[2024-05-26] MEDS ORDERED: CALC-789 PO (09:51)
[2024-05-26] MEDS ORDERED: CETI-450 PO (09:51)
[2024-05-26] MEDS ORDERED: MIRT-89 PO (09:51)
[2024-05-26] MEDS ORDERED: PRAV40TA3 PO (09:53)
[2024-05-26] MEDS ORDERED: PROPOFOL 1% 20 ML VIAL IVP ONE (12:00)
[2024-05-26] MEDS ORDERED: LIDOCAINE/PF 2% 5 ML SYRINGE IVP ONE (12:00)
[2024-05-26] MEDS ORDERED: GLUCAGON,HUMAN RECOMBINANT 1 MG VIAL IVP ONE (12:00)
== END 2024-05-26 11:55 | disposition home or self-care (01) ==
LOC: SURGERY 07:58
PROVIDERS: ATTEND Internal Medicine
DX: K52.9 Noninfective gastroenteritis and colitis, unspecified (principal); D12.3 Benign neoplasm of transverse colon; K64.8 Other hemorrhoids; R10.13 Epigastric pain; K29.50 Unspecified chronic gastritis without bleeding; K44.9 Diaphragmatic hernia without obstruction or gangrene; E11.9 Type 2 diabetes mellitus without complications; E66.01 Morbid (severe) obesity due to excess calories; E78.5 Hyperlipidemia, unspecified; F41.9 Anxiety disorder, unspecified; J45.909 Unspecified asthma, uncomplicated; F20.0 Paranoid schizophrenia; Z79.899 Other long term (current) drug therapy; Z90.710 Acquired absence of both cervix and uterus; Z98.41 Cataract extraction status, right eye; Z98.42 Cataract extraction status, left eye; Z68.20 Body mass index [BMI] 20.0-20.9, adult; Z88.0 Allergy status to penicillin; Z88.1 Allergy status to other antibiotic agents; Z88.5 Allergy status to narcotic agent; Z88.6 Allergy status to analgesic agent; Z91.040 Latex allergy status; Z91.041 Radiographic dye allergy status; Z88.8 Allergy status to other drugs, medicaments and biological substances
CPT/HCPCS: 45385; 45380; 43239; 88305; 88312; 88313; J1610; C1769; J2704; J3490; J7030